=== PATIENT | female | born 1995 | race Caucasian/White ===

== ENCOUNTER 2024-01-14 20:20 | Emergency (ER) | payer BC, OTHER ==
[2024-01-14] MEDS: diphenhydrAMINE 50 MG/ML SDV IVPUSH ONE (20:46)
[2024-01-14] MEDS: methylPREDNISolone Sodium Succinate 125 MG/2 ML SDV IVPUSH ONE (20:48)
[2024-01-14] MEDS: Famotidine 20 MG/2 ML SDV IVPUSH ONE (20:53)
[2024-01-14] MEDS: Metoclopramide 10 MG/2 ML SDV IVPUSH ONE (21:33)
[2024-01-14] MEDS: Ondansetron 4 MG/2 ML SDV IVPUSH ONE (21:37)
[2024-01-14 22:16] VITALS: BP 116/78; PULSE 81
== END 2024-01-14 22:13 | disposition home or self-care (01) ==
LOC: JD.ED 20:20
DX: T78.40XA Allergy, unspecified, initial encounter (principal); Z91.013 Allergy to seafood; Z91.09 Other allergy status, other than to drugs and biological substances; X58.XXXA Exposure to other specified factors, initial encounter
CPT/HCPCS: 96374; 96375; 99283; J1200; J2405; J2919; J3490